=== PATIENT | female | born 1975 | race Caucasian/White ===

== ENCOUNTER → 2018-09-24 | Outpatient (REF) | payer BC | LOC: M LAB REF 16:37 | PROVIDERS: ATTEND Physician Assistant | DX: N61.0 Mastitis without abscess (principal) ==

== ENCOUNTER 2021-11-21 14:45 | Emergency (ER) | payer BC ==
[~2021-11-21] VITALS: Ht 175.3 cm; Wt 98.5 kg
[2021-11-21] MEDS ORDERED: NORCO, ANEXSIA 5/325MG TABLET (HYDROcodone/ACETAMINOPHEN) PO ONE (15:55)
[2021-11-21 19:01] VITALS: BP 136/78
== END 2021-11-21 19:09 | disposition home or self-care (01) ==
LOC: M ED 14:45
DX: M65.842 Other synovitis and tenosynovitis, left hand (principal); S60.212A Contusion of left wrist, initial encounter; Y93.K1 Activity, walking an animal; X58.XXXA Exposure to other specified factors, initial encounter; Y92.009 Unspecified place in unspecified non-institutional (private) residence as the place of occurrence of the external cause; Z88.0 Allergy status to penicillin